=== PATIENT | female | born 1985 | race Caucasian/White ===

== ENCOUNTER 2018-10-25 14:09 | Emergency (ER) | payer SELFPAY ==
--- NOTE | 2018-10-25 14:26 | NUR ---
PT STATED SHE THOUGHT WE HAD A DENTIST AND COULD HELP HER APPLY FOR MEDICAID. I EXPLAINED TO PATIENT THAT THIS WAS AN ER. PT GOT UP AND LEFT BEFORE TRIAGE.
== END 2018-10-25 14:29 | disposition home or self-care (01) ==
LOC: FSED 14:09
DX: Z53.21 Procedure and treatment not carried out due to patient leaving prior to being seen by health care provider (principal)